=== PATIENT | male | born 1985 | race Caucasian/White ===

== ENCOUNTER 2021-10-04 11:51 | Emergency (ER) | payer OTHER ==
[2021-10-04 11:58] VITALS: RESP 18; TEMP 98.1
[2021-10-04 12:58] LABS: Basophils % (A) 1 %; Eosinophils # (A) 0.3 k/uL (0-0.7); Eosinophils % (A) 5 %; HCT 46.1 % (39.0-53.0); HGB 15.5 gm/dL (13.0-17.5); Lymphocytes # (A) 1.3 k/uL (1.0-4.8); Lymphocytes % (A) 21 %; MCH 33.2 pg (25.0-35.0); MCHC 33.5 g/dL (31.0-37.0); MCV 99.1 fL (80.0-100.0); Monocytes # (A) 0.4 k/uL (0-1.0); Monocytes % (A) 6 %; Neutrophils % (A) 66 %; Platelet Count 268 k/uL (150-450); RBC 4.65 m/uL (4.30-5.90); RDW 11.4 % (11.5-15.5); WBC 6.1 k/uL (3.8-10.6)
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
[2021-10-04 13:10] LABS: Partial Thromboplastin Time 27.1 sec (22.0-30.0)
[2021-10-04 13:15] LABS: ALT 18 U/L (4-49); AST 27 U/L (17-59); African American GFR (CKD) >90 (>60 ml/min/1.73 sqM); Albumin 4.4 g/dL (3.5-5.0); Alkaline Phosphatase 52 U/L (38-126); Anion Gap 5 mmol/L; Blood Urea Nitrogen 13 mg/dL (9-20); Calcium 9.2 mg/dL (8.4-10.2); Carbon Dioxide 29 mmol/L (22-30); Chloride 101 mmol/L (98-107); Glucose 101 mg/dL (74-99); Lipase 118 U/L (23-300); Magnesium 1.8 mg/dL (1.6-2.3); Non-African American GFR(CKD) >90 (>60 ml/min/1.73 sqM); Potassium 4.3 mmol/L (3.5-5.1); Sodium 135 mmol/L (137-145); Total Bilirubin 0.6 mg/dL (0.2-1.3); Total Protein 7.1 g/dL (6.3-8.2)
--- NOTE | 2021-10-04 14:04 | CT ---
EXAMINATION TYPE: CT brain wo con CT DLP: 1100 mGycm, Automated exposure control for dose reduction was used. DATE OF EXAM: 10/04/2021 1:58 PM COMPARISON: None. CLINICAL INDICATION:Male, 36 years old with history of left sided weakness. TECHNIQUE: Brain: Multiple axial CT images of the brain were obtained without IV contrast. Coronal and sagittal reformats reviewed. FINDINGS: Brain: Extra-axial spaces: No abnormal extra-axial fluid collections. Ventricular system: Within normal limits Cerebral parenchyma: No acute intraparenchymal hemorrhage or mass effect. The martell-white junction is well differentiated. Cerebellum: Unremarkable. Mass effect: No evidence of midline shift. Intracranial vasculature: unremarkable Soft tissues: Normal. Calvarium/osseous structures: No depressed skull fracture. Paranasal sinuses and mastoid air cells: Moderate scattered paranasal sinus disease. Mastoid air cell s are clear. Visualized orbits: Orbital contents are intact. IMPRESSION: No acute intracranial process. Moderate paranasal sinus disease.
--- NOTE | 2021-10-04 14:09 | CT ---
EXAMINATION TYPE: CT chest angio for PE CT DLP: 371.4 mGycm, Automated exposure control for dose reduction was used. DATE OF EXAM: 10/04/2021 1:58 PM COMPARISON: None. CLINICAL INDICATION:Male, 36 years old with history of chest pain, recent travel; Chest pain TECHNIQUE/CONTRAST: CTA scan of the thorax is performed with IV Contrast, patient injected with 70 mL of Isovue 370, pulm onary embolism protocol. MIP images are created and reviewed. FINDINGS: Pulmonary Artery: There is no evidence for a filling defect within the pulmonary vasculature to sugge st acute pulmonary embolism. The pulmonary artery is of normal size. Lungs/Pleura: No evidence of focal consolidation, pleural effusion or pneumothorax. 2 mm groundglass nodule along the right minor fissure is favored to represent an intrafissural lymph node (series 506, image 77). No concerning pulmonary nodules. Airway: Large airways are patent. Heart: Heart is within normal limits for size. Vasculature: No evidence of aortic aneurysm. Mediastinum: No gross evidence of adenopathy. Musculoskeletal: No acute osseous abnormalities Soft Tissues: Unremarkable. Lower neck: No significant findings. Upper Abdomen: No significant findings. IMPRESSION: No evidence of pulmonary embolism or acute thoracic process.
[2021-10-04 14:49] VITALS: BP 130/78; PULSE 60
== END 2021-10-04 14:47 | disposition home or self-care (01) ==
LOC: EC 11:51
DX: R20.0 Anesthesia of skin (principal); R07.9 Chest pain, unspecified; R06.02 Shortness of breath; F17.290 Nicotine dependence, other tobacco product, uncomplicated
CPT/HCPCS: 36415; 93005; 80053; 83690; 83735; 84484; 85025; 85610; 85730; 70450; 71275; 99285; Q9967

== ENCOUNTER → 2022-03-23 | Outpatient (CLI) | payer OTHER ==
[2022-03-23 10:26] VITALS: BP 135/91; PULSE 89; RESP 18; TEMP 98.2
--- NOTE | 2022-03-23 14:14 | P.PAINPG ---
PQRS Measure Charge Sheet Comment: HISTORY OF PRESENT ILLNESS: 36 yr old male as a referral from Linh ESPARZA presents today w severe and chronic neck back pain x 10 yrs secondary to DDD and facet arhtropathy wtihout myelopathy for evaluation. Pt states pain level is at 7 /10 in intensity, constant, localized in the mid spine, sore in character w shooting pain towards the upper back w hand numbness, LUE> R. Pain is provoked by inactivity for periods of 30 min, or rotation of his cervical spine. Pain is alleviated by heat, ice, hot showers, PT x 15 wks in summer 2021, massage therapy at home, chiropractic treatments in the summer without relief, topicals, use of a traction type device, yoga activities, repositioning and rest. PMH: ADD/ADHD, MDD PSH: Hernia Repair SH: Vaper, Daily ETOH use, +Cannabis use. Self employed auto machinist. FH: Non contributory All: NKDA Meds: See list REVIEW OF ORGAN SYSTEMS: CONSTITUTIONAL: No fevers or chills. No recent weight loss. NEUROLOGICAL: + numbness and tingling along the distal extremities. No seizure disorders or headaches. MUSCULOSKELETAL: + pain PSYCHIATRIC: Denies current depression or suicidal thoughts. Physical Examinations : Constitutional : Cooperative , not in acute distress . Neurologic : Cranial nerve II to XII intact. No focal neurological deficits. Psychiatric : alert & oriented x 3. Matching mood & appropriate affect. Judgment & insight intact. Musculoskeletal : Cervical Spine Motor strength in the deltoid and biceps: Normal right side. Normal Left side Motor strength biceps and the wrist extensors: Normal right side . Normal left side Motor strength in the triceps muscle: Normal right side. Normal left side Deep tendon reflexes: Normal at the biceps. Normal at Brachioradialis. Normal at triceps Vertebral body tenderness to deep palpation over C7, T1 Cervical facet loading test: positive bilaterally Spurling test: positive bilaterally Neck distraction test: positive bilaterally Alvino sign: positive bilaterally Lumbar spine Motor strength lower extremities ,thigh and legs 5/5 Right side , 5/5 Left side Deep tendon reflexes : Normal Knee Jerk. Normal Ankle Jerk Vertebral body tenderness over Lumbar facet Loading Test: positive Right / positive Left Range of motion of the lumbar spine Flexion 30 degrees, extension 10 degrees Straight Leg Raise test: Left/ Right positive at degree Rich test: positive right / positive left. Severe tenderness over the Sacroiliac joint on the Right / Left sides Gaenslen test: positive bilaterally Seated flexion test: positive bilaterally. Sacral spine : Severe tenderness over the Sacroiliac joint: right side / left side Range of motion: Flexion of the lumbar spine <60 degrees Range of motion: Extension of the lumb ar spine <20 degrees Gaenslen's Test positive Baljit's Test positive Rich test: positive right side / left side Thigh Thrust Test Sacral Thrust Test Imaging: cervical x ray performed at Dr Lee's office Assessment/ Plan : Cervical DDD Recommendation of MRI without contrast of the cervical spine re: M50.30 May follow up within 2-3 wks for a re evaluation. All questions answered. I have spent greater than 30 minutes on patient care today. Dr Norwood was available by phone for the evaluation of this patient. The time was used to review the medical records including relevant urine studies and Prescription history (MAPs), review of the available imaging, evaluation and examination of the patient, coordination of care with the medical staff and if applicable referring physicians, as well as creation of the medical record Home Medications: Ambulatory Orders No Known Home Medications 10/04/21 Controlled Substance Measures - Controlled Substance Measures Is patient prescribed a controlled substance at discharge?: No
== END ==
LOC: PNWHC3 09:35
PROVIDERS: ATTEND Specialist
DX: M50.30 Other cervical disc degeneration, unspecified cervical region (principal)
CPT/HCPCS: 99211